=== PATIENT | female | born 1980 | race African-American/Black ===

== ENCOUNTER 2019-06-23 13:36 | Day surgery (SDC) | payer OTHER ==
[2019-06-23 14:30] VITALS: BP 127/77; TEMP 98.1; BMI 34.2
[2019-06-23] MEDS ORDERED: hydrALAZINE 20 MG/ML VIAL SLOW IVP PRN (14:45)
[2019-06-24] MEDS ORDERED: FLU VACC QS2019-20(6MOS UP)/PF 60 MCG/0.5 ML SYRINGE IM ONE (09:00)
--- NOTE | 2019-06-24 11:00 | SS ---
DATE OF ADMISSION: 06/23/2019 DATE OF DISCHARGE: 06/23/2019 LABOR AND DELIVERY TRIAGE NOTE REGULAR PHYSICIAN: Jeannette Proctor MD. EVALUATING PHYSICIAN: Fred Espinal MD CHIEF COMPLAINT: Contractions at home. HISTORY OF PRESENT ILLNESS: Ms. Parr is a 39-year-old black female, G2, P1-0-0-1, with an estimated date of confinement of 07/05/2019, who presents complaining of uterine contractions every 5 to 10 minutes at home. She denies ruptured membranes or vaginal bleeding. Her care has been with Dr. Proctor and has been reportedly uncomplicated. She has a scheduled in approximately 1 week. PAST OBSTETRICAL HISTORY: Includes one at term for failure to progress. PAST MEDICAL HISTORY: None. PAST SURGICAL HISTORY: as above. CURRENT MEDICATIONS: vitamins. ALLERGIES: NO KNOWN ALLERGIES. SOCIAL HISTORY: Denies tobacco or alcohol use. FAMILY HISTORY: Unremarkable. REVIEW OF SYSTEMS: Denies nausea, vomiting, fever, chills, recent travel, cough, ruptured membranes, or vaginal bleeding. PHYSICAL EXAMINATION: VITAL SIGNS: In triage, her vital signs are stable and she is afebrile. GENERAL: She is pleasant and in no distress. ABDOMEN: Soft, nontender, and gravid. PELVIC: Exam by Labor nurse shows the cervix to be fingertip, 80% effaced with the vertex at the -2 station. heart rate tracing is stable. Uterine contractions are seen every 2 to 7 minutes. The patient is allowed to hydrate and is re-examined in approximately an hour and a half. Her cervix remains unchanged. ASSESSMENT: 1. A 38-week intrauterine . 2. Previous section. 3. No evidence of active labor at this time. PLAN: The patient will be allowed to go home. Labor precautions were reviewed with her. She was told to go home, rest, and hydrate. I did discuss this by phone with Dr. Proctor, who agrees with the plan. Job ID: [id number]
== END 2019-06-23 16:50 | disposition home or self-care (01) ==
LOC: L&D/OP 13:36
PROVIDERS: ATTEND Student in an Organized Health Care Education/Training Program
DX: O47.1 False labor at or after 37 completed weeks of gestation (principal); O34.219 Maternal care for unspecified type scar from previous cesarean delivery; Z3A.38 38 weeks gestation of pregnancy
CPT/HCPCS: 99283

== ENCOUNTER 2019-06-23 23:45 | Inpatient (IN) | payer OTHER ==
[2019-06-24] MEDS ORDERED: Promethazine HCl 25 MG/ML VIAL IM PRN ×3 (00:36→04:56)
[2019-06-24] MEDS ORDERED: Butorphanol Tartrate 1 MG/ML VIAL SLOW IVP PRN (00:36)
[2019-06-24] MEDS ORDERED: Ondansetron PF 4 MG/2 ML Vial IVP PRN ×3 (00:36→04:56)
[2019-06-24] MEDS ORDERED: hydrALAZINE 20 MG/ML VIAL SLOW IVP PRN ×2 (00:36→04:56)
[2019-06-24 00:38] VITALS: BMI 34.2
[2019-06-24] MEDS ORDERED: CEFAZOLIN 2 GM in Premix Bag 1 BAG IVPB SCH (00:45)
[2019-06-24] MEDS ORDERED: Bicitra 30 ML UDCUP PO SCH (00:45)
[2019-06-24] MEDS ORDERED: Lactated Ringer's 1,000 ML IV SCH ×2 (00:45)
--- NOTE | 2019-06-24 00:45 | PDOC.LDHP ---
Labor and Delivery H&P Chief complaint: contractions HPI: 39 yo BF here earlier now c/o UCs q 3-5 mins. Denies ROM or bleeding. Current gestational age (weeks): 39 Due date: 07/05/19 Dating criteria: last menstrual period Grav: 2 Para: 1 OB History Details: h/o previous C/S for FTP. PNC with Dr. Proctor. Current complications: none Abnormal US findings: No Past Medical History: none Current medications: pre- vitamins Previous surgical history: low tranverse CS Allergies/Adverse Reactions: Allergies Allergy/AdvReac Type Severity Reaction Status Date / Time No Known Allergies Allergy Verified 06/23/19 14:20 Social history: none - Physical Exam Vital signs reviewed and normal: yes General: breathing through contractions Heart: RRR Lungs: CTAB Abdomen: gravid Extremeties: trace edema FHT: category 1 [place] contractions every: q 2-4 mins - Vaginal Exam cm dilated: 1 Effacement: 100% Station: -1 - Assessment L&D Assessment: term patient in labor - Plan Plan: admit to L&D, to OR for section, informed consent obtained, other (Dr. Proctor notified and wishes to proceed)
[2019-06-24 00:59] LABS: Hemoglobin 12.4 g/dL (12.0-16.0); Mean Corpuscular HGB CONC 33.2 g/dL (32.0-36.0); Mean Corpuscular Hemoglobin 29.4 pg (27.0-31.0); Mean Corpuscular Volume 88.4 fL (78.0-98.0); Mean Platelet Volume 10.2 fL (7.4-10.4); Platelet Count 220 thou/uL (130-400); RBC Distribution Width 13.4 % (11.5-14.5); Red Blood Cell (RBC) Count 4.22 mill/uL (4.20-5.40); White Blood Cell (WBC) Count 12.2 thou/uL (4.8-10.8)
[2019-06-24 01:38] LABS: Syphilis Antibody Nonreactive (Nonreactive); Syphilis Antibody Index 0.06 S/CO (<1.00 Non-Reactive)
[2019-06-24] MEDS ORDERED: Glycopyrrolate 0.2 MG/ML 5 ML SYRINGE ONE (01:40)
[2019-06-24] MEDS ORDERED: Oxytocin 10 UNITS/ML VIAL ONE (01:40)
[2019-06-24] MEDS ORDERED: MORPHINE 5 MG/10 ML PF VIAL ONE (01:40)
[2019-06-24] MEDS ORDERED: Ondansetron PF 4 MG/2 ML Vial ONE (01:40)
[2019-06-24] MEDS ORDERED: PHENYLEPHRINE-NS 100 MCG/ML 10 ML SYRINGE ONE (01:40)
[2019-06-24] MEDS ORDERED: Ketorolac Tromethamine 30 MG/ML VIAL ONE (01:40)
[2019-06-24] MEDS ORDERED: EPHEDRINE 25 MG/5 ML SYRINGE ONE (01:40)
[2019-06-24 01:41] LABS: HBSAg Index 0.23 S/CO (0-0.99); Hep B Surf Ag Non-Reactive S/CO (NonReactive)
[2019-06-24] MEDS ORDERED: Ondansetron HCl/PF 4 MG/2 ML Vial IVP PRN (02:15)
[2019-06-24] MEDS ORDERED: Meperidine HCl/PF 25 MG/ML VIAL SLOW IVP PRN (02:15)
[2019-06-24] MEDS ORDERED: L&D-Morphine 4 MG/ML VIAL SLOW IVP PRN (02:15)
[2019-06-24] MEDS ORDERED: Ketorolac Tromethamine 30 MG/ML VIAL IVP PRN (02:15)
[2019-06-24] MEDS ORDERED: Ketorolac Tromethamine 30 MG/ML VIAL IVP SCH (02:15)
[2019-06-24] MEDS ORDERED: Promethazine HCl 25 MG SUPP PR PRN (02:15)
[2019-06-24] MEDS ORDERED: Naloxone HCl 0.4 mg/ml Vial IV PRN (02:15)
[2019-06-24] MEDS ORDERED: HYDROmorphone 2 MG/ML VIAL SLOW IVP PRN (02:15)
[2019-06-24] MEDS ORDERED: Naloxone HCl 0.4 mg/ml Vial IVP PRN ×2 (02:15)
[2019-06-24] MEDS ORDERED: Communication Order-Pharmacy FS SCH (02:15)
[2019-06-24] MEDS ORDERED: diphenhydrAMINE 50 MG/ML VIAL IVP PRN (02:15)
[2019-06-24] MEDS ORDERED: Dexamethasone 4 mg/ml Vial ONE (02:34)
--- NOTE | 2019-06-24 02:54 | PDOC.OPDEL ---
OB Operative/Delivery Note Delivery Dr/Surgeon: Hitesh Assist: Valerie, PGY 3 Pre-Delivery Diagnosis: active labor Procedure/Post Delivery Dx: repeat low transverse CS Weeks gestation: 38 Anesthesia: spinal - Findings A Sex: female - 1 min: 8 - 5 min: 9 - Additional Findings/Plan Placenta delivered: spontaneous findings: low transverse hysterotomy without extension, normal uterus, normal tubes, normal ovaries Estimated blood loss: 400 Post delivery plan: routine recovery
[2019-06-24] MEDS ORDERED: NS / Oxytocin 40 units/1000ml 1,000 ML ONE (03:17)
[2019-06-24] MEDS ORDERED: Simethicone Chewable 80 MG TAB PO PRN (04:56)
[2019-06-24] MEDS ORDERED: Acetaminophen 325 MG TAB PO PRN (04:56)
[2019-06-24] MEDS ORDERED: Adacel (T-DAP) 0.5 ML SYRINGE IM ONE (04:56)
[2019-06-24] MEDS ORDERED: diphenhydrAMINE 25 MG CAP PO PRN (04:56)
[2019-06-24] MEDS ORDERED: Lanolin Ointment 7 GM TUBE TOP PRN (04:56)
[2019-06-24] MEDS ORDERED: Zolpidem Tartrate 5 MG TAB PO PRN (04:56)
[2019-06-24] MEDS ORDERED: HYDROcodone/Acetaminophen 5/325 mg Tablet PO PRN ×2 (04:56→14:15)
[2019-06-24] MEDS ORDERED: Bisacodyl 10 MG SUPP PR PRN (04:56)
[2019-06-24] MEDS: Ibuprofen 800 MG TAB PO SCH ×2 (05:43→14:24)
[2019-06-24] MEDS: Ferrous Sulfate 325 MG TAB PO SCH ×2 (09:23→21:56)
[2019-06-24] MEDS: Docusate Calcium (SURFAK) 240 MG CAP PO SCH ×2 (09:23→21:35)
[2019-06-24] MEDS: Prenatal Vitamin 1 TAB PO SCH (09:24)
[2019-06-25] MEDS: Ibuprofen 800 MG TAB PO SCH (00:32)
[2019-06-25 05:49] LABS: Hemoglobin 10.4 g/dL (12.0-16.0); Mean Corpuscular HGB CONC 33.7 g/dL (32.0-36.0); Mean Corpuscular Hemoglobin 29.7 pg (27.0-31.0); Mean Corpuscular Volume 88.1 fL (78.0-98.0); Mean Platelet Volume 9.9 fL (7.4-10.4); Platelet Count 179 thou/uL (130-400); RBC Distribution Width 13.2 % (11.5-14.5); Red Blood Cell (RBC) Count 3.51 mill/uL (4.20-5.40); White Blood Cell (WBC) Count 12.9 thou/uL (4.8-10.8)
[2019-06-25] MEDS ORDERED: Ibuprofen 800 MG TAB PO SCH ×2 (08:00→14:00)
[2019-06-25] MEDS: Prenatal Vitamin 1 TAB PO SCH (08:19)
[2019-06-25] MEDS: Docusate Calcium (SURFAK) 240 MG CAP PO SCH (08:19)
[2019-06-25] MEDS: HYDROcodone/Acetaminophen 5/325 mg Tablet PO PRN ×3 (08:19→16:37)
[2019-06-25 11:32] VITALS: BP 133/69; TEMP 98
[2019-06-25] MEDS: Ferrous Sulfate 325 MG TAB PO SCH (11:43)
--- NOTE | 2019-06-25 11:50 | PDOC.PP ---
Post Progress Note Post Day #: 1 PO intake tolerated: yes Flatus: yes Ambulation: yes Vital Signs (12 hours) Temp Pulse Resp BP Pulse Ox 06/25/19 11:31 98.0 F 77 20 133/69 06/25/19 07:43 98.1 F 77 20 110/65 98 06/25/19 04:30 98.4 F 75 18 107/60 06/25/19 00:30 98.4 F 86 18 109/60 Weight Weight 212 lb - Physical Examination General: NAD Respiratory: non-labored breathing Abdominal: no distention, appropriately TTP Fundus firm & at: umb Extremities: negative homans (B) Skin: CS incision dry & intact Neurological: no gross focal deficits Psychiatric: normal affect Result Diagrams: 06/25/19 05:15 Additional Labs: Post Labs Blood Type O POSITIVE 06/24/19 01:17 Hep Bs Antigen Non-Reactive S/CO (NonReactive) 06/24/19 00:52 - Assessment/Plan POD1 s/p RCS VSSAF Doing well, meeting postop milestones Hgb 12-->10.4, appropriate postsurgical drop due to blood loss, asx, cont PNV Rh pos RImm Cont postop care, likely home tomorrow
== END 2019-06-25 17:00 | disposition home or self-care (01) | DRG 788 ==
LOC: L&D/OP 23:45 → L&D 06-24 01:03 → 3SW 06-24 05:24
PROVIDERS: ADMIT Student in an Organized Health Care Education/Training Program; ATTEND Student in an Organized Health Care Education/Training Program
PROC: 10D00Z1 Extraction of Products of Conception, Low, Open Approach (ICD-10-PCS; principal; 2019-06-24)
DX: O34.211 Maternal care for low transverse scar from previous cesarean delivery (principal); Z3A.38 38 weeks gestation of pregnancy; Z37.0 Single live birth
CPT/HCPCS: 36415; 51702; 85027; 86780; 86850; 86900; 86901; 87340; 99285; J0595; J0690; J1100; J1885; J2274; J2405; J2590